=== PATIENT | male | born 1975 | race Caucasian/White ===

== ENCOUNTER 2017-03-17 10:25 | Emergency (ER) | payer OTHER ==
[~2017-03-17] VITALS: Ht 188 cm; Wt 98.0 kg
[2017-03-17 10:36] VITALS: TEMP 36.8; Ht 188 cm; Wt 98.0 kg
[2017-03-17] MEDS ORDERED: XYLOCAINE 1%/SOD BICARB 20 ML VIAL INFIL ONE (10:50)
[2017-03-17] MEDS ORDERED: RTL20 PO (10:56)
--- NOTE | 2017-03-17 11:09 | EMERGENCY ROOM VISIT NOTE ---
ED Visit Note First contact with patient: 10:49 CHIEF COMPLAINT: Hand laceration HISTORY OF PRESENT ILLNESS: This 41-year-old male patient presents to the emergency department ambulatory after cutting the left hand on a large bolt at work just prior to arrival. The bleeding has not stopped. Denies weakness or numbness of the hand or fingers. The patient rates his pain a 5/10her injuries. The patient's Tetanus shot is not up to date. REVIEW OF SYSTEMS: A 6 system review of systems was completed with positives and pertinent negatives listed in the HPI. ALLERGIES: No known drug allergies MEDICATIONS: none PMH: none SOCIAL HISTORY: The patient lives locally. He is employed. He does not smoke PHYSICAL EXAM: Vital Signs: Reviewed Nurse's notes, vital signs stable. GENERAL : This is a 41-year-old male, in no acute distress, well-developed, well- nourished. SKIN: There is a 3 cm long laceration on the palmar aspect of the left hand. The edges gape apart with traction. There is no foreign material in the wound and it looks clean. There is minimal bleeding. No deep structures such as tendons, bones, or nerves are seen in the base of the wound. Normal strength and movement of the fingers and wrist. Capillary refill less than 2 seconds. Normal sensation to light and sharp touch. EMERGENCY DEPARTMENT COURSE: I examined the patient. Using sterile technique the wound was cleaned with Betadine. The area was sterilely draped. 3 ml of 1% buffered lidocaine was used to anesthetize the laceration on the hand. Once the patient was numb, the wound was copiously irrigated under pressure with sterile saline. The wound was explored and was as described above. The laceration was repaired using 4 simple interrupted 5-0 prolene sutures with the wound edges being well approximated. The patient tolerated the procedure well. The bleeding stopped. The area was cleaned with sterile saline and dressed with bacitracin ointment and bandage. The patient was given Td immunization. The patient was discharged home in good condition. DIAGNOSIS: Hand laceration DISCHARGE INSTRUCTIONS & TREATMENT: Keep wound clean and dry. Do not allow any crusting or dried blood to accumulate on sutures. If this occurs, use a 1:1 solution of hydrogen peroxide/water on a Q-tip to clean the wound. Use an antibiotic ointment for 3-4 days, then let wound dry. Suture removal in 10-12 days. Return sooner for any signs of infection (increasing redness, swelling, drainage). Ice and elevate for swelling and pain. Ibuprofen 600 mg every 6 hrs for pain. Keep covered when in sun until sutures removed then SPF 50 or higher for one year. Vitamin E oil if desired two weeks after suture removal for reduction of scar. Current/Historical Medications Scheduled Methylphenidate (Ritalin), 20 MG PO DAILY Allergies Coded Allergies: No Known Allergies (Unverified , 03/17/17) Vital Signs Date Time Temp Pulse Resp B/P (MAP) Pulse Ox O2 Delivery O2 Flow Rate FiO2 03/17/17 11:54 62 18 130/76 99 03/17/17 10:36 36.8 67 18 135/88 99 Room Air Medications Administered Medications (Trade) Dose Ordered Sig/Rudi Route Start Time Stop Time Status Last Admin Dose Admin Diphtheria/ Pertussis/Tetanus Vacc (Adacel Inj) 0.5 ml ONCE ONCE IM. 03/17/17 11:15 03/17/17 11:16 DC 03/17/17 11:34 0.5 ML Departure Information Impression Primary Impression: Laceration of hand Dispostion Home / Self-Care Condition GOOD Referrals No Doctor, Assigned (PCP) Patient Instructions ED Laceration All, My [facility] Additional Instructions Keep wound clean and dry. Do not allow any crusting or dried blood to accumulate on sutures. If this occurs, use a 1:1 solution of hydrogen peroxide/ water on a Q-tip to clean the wound. Use an antibiotic ointment for 3-4 days, then let wound dry. Suture removal in 10-12 days. Return sooner for any signs of infection (increasing redness, swelling, drainage). Ice and elevate for swelling and pain. Ibuprofen 600 mg every 6 hrs for pain. Keep covered when in sun until sutures removed then SPF 50 or higher for one year. Vitamin E oil if desired two weeks after suture removal for reduction of scar. Problem Qualifiers Primary Impression: Laceration of hand Encounter type: initial encounter Foreign body presence: without foreign body Laterality: left Qualified Codes: S61.412A - Laceration without foreign body of left hand, initial encounter
[2017-03-17] MEDS ORDERED: DIPHTHERIA/TETANUS/PERTUSSIS 0.5 ML SYR/VIAL IM. ONE (11:15)
[2017-03-17 11:54] VITALS: BP 130/76; PULSE 62; O2SAT 99
== END 2017-03-17 11:56 | disposition home or self-care (01) ==
LOC: C.EDB 10:28 → C.EDD 11:56
DX: S61.412A Laceration without foreign body of left hand, initial encounter (principal); W45.8XXA Other foreign body or object entering through skin, initial encounter; Y99.0 Civilian activity done for income or pay; Z23 Encounter for immunization

== ENCOUNTER 2017-03-25 10:15 | Emergency (ER) | payer OTHER ==
[~2017-03-25] VITALS: Ht 188 cm; Wt 65.8 kg
[~2017-03-25 10:15] MED LIST: RTL20 PO
[2017-03-25 10:40] VITALS: BP 136/81; PULSE 84; TEMP 36.8; O2SAT 95; Ht 188 cm; Wt 65.8 kg
--- NOTE | 2017-03-25 10:59 | EMERGENCY ROOM VISIT NOTE ---
ED Visit Note First contact with patient: 10:47 CHIEF COMPLAINT: Suture removal HISTORY OF PRESENT ILLNESS: This 41-year-old male patient returns to the ED today for removal of sutures that were placed 8 days ago. There has been no swelling, redness, or drainage from the wound. The patient feels like the laceration is healing well. REVIEW OF SYSTEMS: A 6 system review of systems was completed with positives and pertinent negatives listed in the HPI. PMH: Unchanged from previous visit. ALLERGIES: No known drug allergies PHYSICAL EXAM: Vital Signs: Reviewed Nurse's notes, vital signs stable. GENERAL : This is a 41-year-old male, in no acute distress. SKIN: There is a sutured wound on the left hand with no signs of infection. There is no erythema, swelling, or tenderness. EMERGENCY DEPARTMENT COURSE: 4 sutures were removed without any difficulty and there was no separation of the wound edges. Steri-Strips were placed. The patient was discharged home in good condition. DIAGNOSIS: Healing laceration and suture removal DISCHARGE INSTRUCTIONS AND TREATMENT: Leave the steri strips in place for the next 2-3 days if possible. Current/Historical Medications Scheduled Methylphenidate (Ritalin), 20 MG PO DAILY Allergies Coded Allergies: No Known Allergies (Unverified , 03/17/17) Vital Signs Date Time Temp Pulse Resp B/P (MAP) Pulse Ox O2 Delivery O2 Flow Rate FiO2 03/25/17 10:40 36.8 84 16 136/81 95 Room Air Departure Information Impression Primary Impression: Encounter for removal of sutures Dispostion Home / Self-Care Condition GOOD Referrals No Doctor, Assigned (PCP) Patient Instructions [facility] Additional Instructions Leave the steri strips in place for the next 2-3 days if possible.
== END 2017-03-25 11:04 | disposition home or self-care (01) ==
LOC: C.EDB 10:17 → C.EDD 11:04
DX: S61.412D Laceration without foreign body of left hand, subsequent encounter (principal); X58.XXXD Exposure to other specified factors, subsequent encounter